=== PATIENT | female | born 1990 | race Caucasian/White ===

== ENCOUNTER 2020-06-16 09:13 | Outpatient (REF) | payer OTHER, SELFPAY ==
[2020-06-17 11:06] LABS: BV Int Neg Control Negative (Negative); BV Int Pos Control Positive (Positive)
[2020-06-19 02:58] LABS: HPV mRNA E6/E7 rflx Not Detected (Not Detected)
[2020-07-11 12:41] LABS: CT PCR NOT DETECTED (Not Detect.); NG PCR NOT DETECTED (Not Detect.)
== END 2020-06-16 09:14 | disposition home or self-care (01) ==
LOC: HO.LAB 09:13
PROVIDERS: Visit Provider Advanced Practice Midwife
DX: Z01.419 Encounter for gynecological examination (general) (routine) without abnormal findings (principal); R10.2 Pelvic and perineal pain; Z87.42 Personal history of other diseases of the female genital tract; N93.9 Abnormal uterine and vaginal bleeding, unspecified; N94.10 Unspecified dyspareunia
CPT/HCPCS: 87480; 87491; 87510; 87591; 87624; 87625; 87660; 88142

== ENCOUNTER 2020-08-03 13:33 | Outpatient (REF) | payer OTHER, SELFPAY ==
--- NOTE | 2020-08-03 13:47 | US_ITS ---
EXAMINATION: US PELVIS COMPLETE US PELVIS TRANSVAGINAL CLINICAL INFORMATION: Pelvic pain. LMP 07/07/2020. COMPARISON: Most recent CT abdomen/pelvis dated 12/01/2013 and pelvic ultrasound dated 09/06/2013. TECHNIQUE: Transabdominal and transvaginal imaging was performed. FINDINGS: The uterus is of normal size and echogenicity measuring 8 x 2.9 x 5.1 cm. A regular homogeneous endometrium is identified measuring 0.7 cm. Both ovaries are of normal size and echogenicity. The right measures 3.3 x 2.8 x 2.1 cm for a volume of 9.9 mL. The left measures 3.2 x 1.3 x 1.3 cm for a volume of 2.8 mL. There is no pelvic free fluid. US/US pelvic complete IMPRESSION: Unremarkable pelvic ultrasound.
--- NOTE | 2020-08-03 13:47 | US_ITS ---
EXAMINATION: US PELVIS COMPLETE US PELVIS TRANSVAGINAL CLINICAL INFORMATION: Pelvic pain. LMP 07/07/2020. COMPARISON: Most recent CT abdomen/pelvis dated 12/01/2013 and pelvic ultrasound dated 09/06/2013. TECHNIQUE: Transabdominal and transvaginal imaging was performed. FINDINGS: The uterus is of normal size and echogenicity measuring 8 x 2.9 x 5.1 cm. A regular homogeneous endometrium is identified measuring 0.7 cm. Both ovaries are of normal size and echogenicity. The right measures 3.3 x 2.8 x 2.1 cm for a volume of 9.9 mL. The left measures 3.2 x 1.3 x 1.3 cm for a volume of 2.8 mL. There is no pelvic free fluid. US/US transvaginal IMPRESSION: Unremarkable pelvic ultrasound.
== END 2020-08-03 13:34 | disposition home or self-care (01) ==
LOC: HO.US 13:33
PROVIDERS: Visit Provider Advanced Practice Midwife
DX: R10.2 Pelvic and perineal pain (principal); N94.10 Unspecified dyspareunia
CPT/HCPCS: 76830; 76856

== ENCOUNTER → 2020-08-11 12:11 | Outpatient (BNVA) | payer OTHER, SELFPAY | PROVIDERS: PCP Internal Medicine; Visit Provider Advanced Practice Midwife ==

== ENCOUNTER 2021-06-23 18:43 | Outpatient (REF) | payer OTHER, SELFPAY ==
[2021-06-23 19:32] LABS: Influenza A PCR POSITIVE (Negative); Influenza B PCR NEGATIVE (Negative); Resp Syncy Virus RNA Qual PCR NEGATIVE (Negative); SARS COV2 PCR INHOUSE NEGATIVE (Negative)
== END 2021-06-23 18:44 | disposition home or self-care (01) ==
LOC: HO.LNP 18:43
PROVIDERS: Visit Provider Physician Assistant Medical
DX: Z20.822 Contact with and (suspected) exposure to COVID-19 (principal); J06.9 Acute upper respiratory infection, unspecified
CPT/HCPCS: 0241U